=== PATIENT | male | born 1950 | race African-American/Black ===

== ENCOUNTER 2019-08-25 19:03 | Observation (INO) | payer MEDICARE, SELFPAY ==
[2019-08-25] VITALS (7 sets, daily range): BP systolic 127–146; BP diastolic 83–92; PULSE 65–75; RESP 11–21; TEMP 36.6–36.8; O2SAT 95–99; BMI 31.9
--- NOTE | ~2019-08-25 | XR_ITS ---
EXAMINATION: XR chest 2V EXAM DATE: 08/25/2019 19:33 INDICATION: Left-sided chest pain radiating down left arm. TECHNIQUE: Frontal and lateral projections of the chest obtained and reviewed. There is no prior laurence dy for comparison. FINDINGS: Sternotomy wires are present without findings to suggest sternal dehiscence. Cervical fusi on hardware. Cardiac valve replacement. The lungs are clear. There are no pleural effusions. Cardia c silhouette is prominent but magnified on this AP technique. There is no pneumothorax suspected. The bones and soft tissues are unremarkable. IMPRESSION: No acute cardiopulmonary findings. Reviewed, dictated and finalized at location A.
--- NOTE | 2019-08-25 19:08 | ECG_ITS ---
Measurements Intervals [place] Rate: 73 P: 77 [place]: 249 QRS: 26 QRSD: 97 T: 43 QT: 392 QTc: 434 Interpretive Statements SINUS RHYTHM WITH FIRST DEGREE AV BLOCK BASELINE WANDER- I, II, AVR, AVL, AVF, V1-V2 ABNORMAL ECG Electronically Signed On 08-26-2019 6:59:35 CDT by Ivan Robison D.O.
[2019-08-25 19:22] LABS: Basophils Percent Auto 0.6 % (0.2-1.2); Eosinophils Absolute Auto 0.2 K/mm3 (0-0.3); Eosinophils Percent Auto 2.5 % (0-4.4); Hematocrit 40.3 % (42.0-52.0); Hemoglobin 13.8 g/dL (14.0-18.0); Immature Granulocyte Absolute 0.01 K/mm3 (0.00-0.031); Immature Granulocyte Percent A 0.1 % (0-0.5); Lymphocytes Absolute Auto 2.63 K/mm3 (0.9-3.2); Lymphocytes Percent Auto 36.2 % (18.3-44.2); Mean Corpuscular HGB Conc 34.2 g/dl (32-36); Mean Corpuscular Hemoglobin 31.4 pg (26-34); Mean Corpuscular Volume 91.6 fl (80-100); Mean Platelet Volume 10.1 fl (7.4-10.4); Monocytes Absolute Auto 0.8 K/mm3 (0.1-0.6); Monocytes Percent Auto 11.6 % (2.6-8.5); Neutrophils Absolute Auto 3.6 K/mm3 (1.3-6.7); Platelet Count Result 227 k/mm3 (150-375); Red Cell Distribution Width 14.1 % (11.5-14.5); White Blood Count 7.3 K/mm3 (4.5-10.0)
--- NOTE | 2019-08-25 19:23 | PC.NURSE ---
Patient to radiology
[2019-08-25 19:32] LABS: Partial Thromboplastin Time 27.6 SECONDS (22.3-36.8); Prothrombin Time 12.5 Seconds (11.1-14.7)
[2019-08-25 19:34] LABS: Blood Urea Nitrogen 14 mg/dL (9-20); Calcium 9.1 mg/dL (8.4-10.2); Carbon Dioxide 24 mmol/L (22-30); Chloride 107 mmol/L (98-107); Estimated CRCL calculation 69 ml/min; Estimated Glomerular Filt Rate > 60; Glucose 84 mg/dL (75-110); Potassium 3.6 mmol/L (3.4-5.0); Sodium 138 mmol/L (137-145)
--- NOTE | 2019-08-25 19:39 | ED.CHESTPAIN ---
HPI - Chest Pain General Chief Complaint: Chest Pain Stated Complaint: chest pain Source: patient Mode of arrival: EMS Limitations: no limitations History of Present Illness HPI narrative: This patient is a 68 yo male with h/o HTN, hyperlipidemia, mitral valve repair who presents for evaluation of left chest pain. Patient states he developed pain earlier in the afternoon while cutting the grass. He describes his pain as a dull ache that radiate to left arm. He took 2 full strength aspirin and rested, and he states his pain resolved. He reports later he was driving to [place] when he developed the pain again that radiated to his neck. He reported associated sob and nausea. He states his pain at its maximum was 8/10 but now it is resolving. He reports pain is 2/10. 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 MD complaint: chest pain Pertinent past history: other (mitral valve repair) Timing of current episode: episodic Onset: during rest and during exertion Pain location: left chest Pain radiation: left arm and neck Relieving factors: nothing Exacerbating factors: nothing Related Data Home Medications Medication Instructions Recorded Confirmed amlodipine-benazepril [Lotrel] 1 cap PO DAILY 08/25/19 08/25/19 atorvastatin 10 mg PO DAILY 08/25/19 08/25/19 cholecalciferol-soy isoflavone 1 tablet PO DAILY 08/25/19 08/25/19 diclofenac sodium [Voltaren] 2 g TOPICAL QID 08/25/19 08/25/19 escitalopram oxalate 10 mg PO DAILY 08/25/19 08/25/19 finasteride 5 mg PO DAILY 08/25/19 08/25/19 fish oil-dha-epa 1 cap PO DAILY 08/25/19 08/25/19 fluticasone propionate 2 spray INTRANASAL BID PRN 08/25/19 08/25/19 hydrochlorothiazide 25 mg PO DAILY 08/25/19 08/25/19 lansoprazole 30 mg PO DAILY 08/25/19 08/25/19 latanoprost 1 drp OPHTHALMIC (EYE) HS 08/25/19 08/25/19 levocetirizine 5 mg PO DAILY PRN 08/25/19 08/25/19 lifitegrast [Xiidra] 1 drp OPHTHALMIC (EYE) BID 08/25/19 08/25/19 olopatadine [Pazeo] 1 drp OPHTHALMIC (EYE) DAILY 08/25/19 08/25/19 potassium chloride 10 meq PO DAILY 08/25/19 08/25/19 tamsulosin 0.4 mg PO BID 08/25/19 08/25/19 tramadol 50 mg PO Q6H PRN 08/25/19 08/25/19 Allergies Allergy/AdvReac Type Severity Reaction Status Date / Time No Known Allergies Allergy Verified 08/25/19 19:37 Review of Systems Review of Systems: All systems reviewed & are unremarkable except as noted in HPI and below Constitutional: Constitutional: Denies chills, Denies fever(s) and Denies weakness Cardiovascular: Cardiovascular: Reports chest pain and Reports radiating jaw, neck or arm pain Respiratory: Respiratory: Denies cough, Reports dyspnea and Denies wheezing Gastrointestinal: Gastrointestinal: Denies abdominal pain, Reports nausea and Denies vomiting Musculoskeletal: Musculoskeletal: Denies back pain Neurologic: Denies dizziness PMFSH Past Medical History Medical History (Updated 08/25/19 @ 21:07 by Delia Garcia MD) Hyperlipidemia Hypertension Surgical History Surgical History (Updated 08/25/19 @ 19:41 by Delia Garcia MD) Cervical vertebral fusion H/O mitral valve repair H/O repair of rotator cuff Family History Family History (Updated 08/25/19 @ 23:28 by Elvie Day RN) Father Mother Sibling Hypertension Sibling Hypertension Social History Social History Smoking status: Never smoker Alcohol intake: never Substance use: never Gender identity (if verbalized by the patient): Male Spiritual care concerns: No Agree to blood products: Yes Exam Narrative: Exam Narrative: GENERAL: Well-appearing, well-nourished, and in no acute distress. HEAD: Normocephalic, atraumatic EYES: PERRLA and EOMI, conjunctiva clear without discharge THROAT:Mucous membranes moist, Oropharynx normal without erythema, exudate, peritonsillar swelling or fluctuance NECK: Supple, without lymphadenopathy or mass RESPIRAT
[2019-08-25 19:46] LABS: Troponin I < 0.012 ng/mL (0.000-0.034)
--- NOTE | 2019-08-25 22:14 | ADMGEN ---
This patient, Rafi Murguia, was admitted to IMU Room 214-01 from ER 08/25/19 2200. Patient/family oriented to hospital policies and general routines including ID bracelet, bed and alarms, visiting hours, pain management, procedures, bathroom and other care routines, personal items, smoking policy, room service/diet, and visiting hours. Valuables list has been completed. Information on how to activate the Rapid Response Team has been discussed. Patient/Family are encouraged to report perceived risks to care and to ask questions if they do not understand what they are told or what they should do.
[2019-08-25 22:36] LABS: Troponin I 0.013 ng/mL (0.000-0.034)
[2019-08-26 01:39] LABS: Troponin I < 0.012 ng/mL (0.000-0.034)
[2019-08-26 02:00] VITALS: PULSE 61
[2019-08-26 04:00] VITALS: BP 132/59; PULSE 62; RESP 18; TEMP 36.1; O2SAT 98
[2019-08-26 06:00] VITALS: PULSE 68
[2019-08-26 08:00] VITALS: PULSE 70
[2019-08-26 08:29] VITALS: BP 156/77; PULSE 64; RESP 20; TEMP 36.3; O2SAT 99
[2019-08-26] MEDS: AMLODIPINE BESYLATE 5 MG TABLET PO (08:35)
[2019-08-26] MEDS: lisinopriL 20 MG TABLET PO (08:35)
--- NOTE | 2019-08-26 08:38 | PM.IMHP ---
H&P: HPI History of Present Illness Chief complaint: chest pain Narrative: Date and Time of Service of History and Physical: August 26, 2019 at 8:10 a.m. Date and Time of Placement in Observation Order: August 25, 2019 at 9:08 p.m. Chief Complaint: Chest pain. History of Present Illness: Rafi Mugruia is a 68 year old male with known hypertension, history of mitral valve repair after endocarditis and hyperlipidemia present emergency room with episode of chest pain yesterday. Patient reports he was cutting his grass at approximately 2:30 p.m. when he noted feeling tired. This was followed by spasm in the left back and rib area. He did take 2 full aspirin at that time. No associated diaphoresis, nausea or lightheadedness. Patient was able to complete mowing his lawn without any difficulties. He reports later he was driving to [place] when he noted 2nd episode of discomfort in the left rib/chest area with some radiation to the left arm and left leg. He did take 2 baby aspirin at that time. With a 2nd episode, he presented to the emergency room for evaluation. Of note, patient does see Dr. 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 He was seen on August 11, 2019 with plan for routine stress test already scheduled. Patient does mention the episode of back/chest pain is similar to episodes in the past for which she has seen his chiropractor with relief. He does note having some nausea with the 2nd episode. He did have endocarditis in 2004 with subsequent mitral valve repair. He has been chest pain-free since arriving in the emergency room. He does normally spends his cole in [place] most recently returning on July 02, 2019. He has been isolating with his with current COVID-19 pandemic. No recent fever, chills or sweats. No shortness of breath. Initial evaluation in the emergency room was negative but given his history decision was made to place in observation for further evaluation and treatment. Review of Systems Review of Systems: All systems reviewed & are unremarkable except as noted in HPI and below Constitutional: Constitutional: Denies body ache(s), Denies chills and Denies fever(s) Eyes: Eyes: Denies blurry vision and Denies diplopia ENT: Denies nasal congestion and Denies nasal discharge Cardiovascular: Cardiovascular: Reports chest pain (yesterday but none today), Denies diaphoresis and Denies lightheadedness Respiratory: Respiratory: Denies cough and Denies dyspnea Gastrointestinal: Gastrointestinal: Denies abdominal pain, Denies diarrhea, Reports nausea (with 2nd chest pain episode yesterday) and Denies vomiting Genitourinary: Genitourinary: Denies hematuria, Denies dysuria and Denies urinary frequency Musculoskeletal: Musculoskeletal: Reports no additional musculoskeletal complaints Integumentary/Breasts: Skin/Breast: Reports system reviewed and no additional complaints, except as docu Neurologic: Denies headache(s) and Denies numbness Psychiatric: Psychiatric: Denies anxiety, Denies confusion and Denies depression Endocrine: Endocrine: Reports no additional endocrine complaints Hematologic/Lymphatic: Hematologic/Lymphatic: Reports no additional hematologic/lymphatic complaints Allergic/Immunologic: Allergic/Immunologic: Reports no additional allergic/immunologic complaints PMFSH Past Medical History Medical History Hyperlipidemia Hypertension Surgical History Surgical History Cervical vertebral fusion H/O mitral valve repair H/O repair of rotator cuff bilateral S/P medial meniscal repair both Family History Family History Father Mother Hypertension Sibling Hypertension Sibling Hypertension Social History Social History Social H
--- NOTE | 2019-08-26 08:59 | PM.DS ---
DS: Diagnosis Admitting Diagnosis Admitting Diagnosis: Chest pain, unspecified Discharge Diagnosis (1) Chest pain: Qualifiers: Chest pain type: unspecified Qualified Code(s): R07.9 - Chest pain, unspecified Code(s): R07.9 - Chest pain, unspecified Status: Acute (2) Hypertension: Qualifiers: Hypertension type: essential hypertension Qualified Code(s): I10 - Essential (primary) hypertension Code(s): I10 - Essential (primary) hypertension Status: Acute (3) Hyperlipidemia: Qualifiers: Hyperlipidemia type: unspecified Qualified Code(s): E78.5 - Hyperlipidemia, unspecified Code(s): E78.5 - Hyperlipidemia, unspecified Status: Acute DS: Summary Hospital Course Reason for hospitalization: Chest pain. Hospital Course: Date of Service of Discharge: August 26, 2019. History of Present Illness: Patient is a pleasant 68-year-old gentleman with known hypertension, history of mitral valve repair after endocarditis and hyperlipidemia presented to the emergency room with complaint of chest pain. On the day of presentation, patient reports he was cutting his grass at approximately 2:30 p.m. when he noted feeling tired followed by spasm in the left back extending around to the anterior ribs. He reports he took 2 full aspirin at that time. No associated diaphoresis, nausea or lightheadedness. He was able to complete mowing his lawn without incident. He reports later he was driving to all when he noted a 2nd episode of discomfort in the left rib/ chest. With some radiation to the left arm and left leg. He took 2 baby aspirin at that time and decided come to the emergency room for further evaluation and treatment. Of note, he did see his regular reel repairer, Dr. Deluna, on 08/11/2019 with plan for routine scheduled stress test. He does also mention he has had similar back/chest pain for which she has seen his chiropractor with relief of symptoms. With the 2nd episode of chest pain he did have some nausea but still no diaphoresis. On evaluation in the emergency room, patient with no elevation of troponin level and no acute changes on EKG but given his symptoms it was felt prudent to place him in observation for further evaluation and treatment. Of note, he has had no recent fever, chills or sweats. No shortness of breath. Course in Hospital: On placement in observation, he was placed in the IMU where he remained for the duration of his stay. Serial troponin levels remain negative. Patient remained chest pain free while in hospital. He had no shortness of breath, diaphoresis or nausea. He was monitored on telemetry with no acute changes seen. He was continued on his home medications with blood pressure stable. As he was asymptomatic with negative troponin levels, decision was made to have him follow-up with his regular reel repairer and keep scheduled appointment for stress test. He was also continued on his home atorvastatin for hyperlipidemia. Patient required no oxygen throughout his stay. He had no alteration in electrolytes for glucose levels. He had no other acute symptoms. With the patient stable and eager for discharge, he was able to discharge home on the morning of 08/26/2019. Time spent discussing smoking cessation with patient: more than 10 minutes Status at Discharge Cognitive/behavioral status at discharge: Stable. Functional status at discharge: independent ambulation Overall status at discharge: patient is back to baseline Time Spent with Patient Time attestation: Total time spent providing and/or coordinating discharge services: 40 minutes. Time spent: Greater than 30 minutes Exam Narrative: Exam Narrative: Vital Signs Temp Pulse Resp BP Pulse Ox 98.2 F 73 17 138/88 97 08/25/19 19:00 08/25/19 19:00 08/25/19 19:00
[2019-08-26 10:00] VITALS: PULSE 70
== END 2019-08-26 10:23 | disposition home or self-care (01) ==
LOC: ANHED 21:13 → ANHIMU 21:53
PROVIDERS: Admitting Provider Internal Medicine; Emergency Provider General Practice; PCP Internal Medicine; Visit Provider Hospitalist
DX: R07.9 Chest pain, unspecified (principal); I10 Essential (primary) hypertension; E78.5 Hyperlipidemia, unspecified; Z95.2 Presence of prosthetic heart valve
CPT/HCPCS: 36415; 71046; 80048; 84484; 85025; 85610; 85730; 93005; 99285; A9270; G0378